=== PATIENT | female | born 1995 | race Two or more races ===

== ENCOUNTER 2020-04-12 18:36 | Observation (INO) ==
[2020-04-12] MEDS ORDERED: NS 1000 ML 1,000 ML IV ONE (19:10)
--- NOTE | 2020-04-12 19:10 | ED.ABDFE ---
HPI Time Seen Time Seen by Provider: 04/12/20 19:10 PCP Primary Care Physician: ANAT HPI Comment HPI Comment: HISTORY BELOW. Complaint Doctors Chief Complaint Comments: PATIENT IS 24YR OLD FEMALE IN ER WITH RIGHT FLANK PAIN RADIATING TO RUQ ABDOMEN TIMES 4 DAYS. PAIN ASSOCIATED WITH NAUSEA AND VOMITING. PAIN IS 10/10 IN THE RIGHT FLANK RADIATING IN BAND LIKE MANNER TO RUQ OF THE ABDOMEN. PAIN IS SHARP. DENIES DIARRHEA OR DYSURIA. SIMILAR MILD PAIN IN PAST SEVERAL MONTHS. PAST FEW DAYS, PATIENT NOT HOLDING DOWN FLUID. SHE IS SLIGHTLY WEAK. Chief Complaint:: PATIENT IN ED VIA WHEELCHAIR WITH C/O RIGHT FLANK PAIN SHARP IN NATURE X 4 DAYS AND RATED 10/10. PATIENT STATES SHE HAS BEEN NAUSEATED AND VOMITING SINCE THURSDAY AND UNABLE TO KEEP ANY FOOD DOWN Self Treatment fo Chief Complaint: TYLENOL OTC COVID-19 Coronavirus risk:travel/contact w/high risk person: No Has patient experienced Coronavirus symptoms: No Reviewed Nurses Notes Review: Yes Source History Provided: Patient Mode of arrival Mode of Arrival: Wheelchair Timing Onset of Chief Complaint: 04/08/20 Came on: Suddenly Duration Since Onset: Constant Duration: Days Location Location: RUQ (RIGHT FLANK PAIN.) Severity Severity: Severe Quality Quality: Sharp Context History of: None Modifying factors Worsening Factors: Exertion Improving Factors: Lying Still Associated signs and symptoms Associated Signs and Symptoms: Nausea and Vomiting PMH PMH Past Medical History: No Past Surgical History: No Family History History of Family Medical Conditions: No Social History Alcohol Use: None Do you use any recreational Drugs:: No Lives With: Family Lives Where: Home Travel Risk Coronavirus risk:travel/contact w/high risk person: No Has patient experienced Coronavirus symptoms: No Infectious screening In the last 2 months have you had wt loss of >10#?: NO Have you had fever, night sweats or hemotysis?: No Have you traveled outside the country in the last 6 months?: No Isolation: Standard ROS Review of Systems Constitutional: See HPI, Weakness and Fatigue; negative Fever Eyes: No Symptoms Reported and See HPI ENTM: No Symptoms Reported and See HPI; negative Ear Pain, Nose Discharge, Nose Congestion and Throat Pain Respiratoy: No Symptoms Reported and See HPI; negative Moist Cough, Short of Breath and Wheezing Cardiovascular: No Symptoms Reported and See HPI; negative Chest Pain, Edema and Palpitations Gastrointestinal/Abdominal: See HPI, Abdominal Pain, Nausea and Vomiting; negative Constipation and Diarrhea Genitourinary: No Symptoms Reported and See HPI; negative Dysuria, Frequency and Hematuria Neurological: No Symptoms Reported and See HPI; negative Headache, Weakness and Dizziness Musculoskeletal: No Symptoms Reported, See HPI and Back Pain (RIGHT FLANK PAIN.); negative Muscle Pain Integumentary: No Symptoms Reported and See HPI; negative Change in Color, Rash and Juandice Hematologic/Lymphatic: No Symptoms Reported and See HPI; negative Easy Bruising and Swollen Glands Endocrine: No Symptoms Reported and See HPI; negative Increased Thirst, Increased Urine and Decreased Appetite Psychiatric: No Symptoms Reported and See HPI All Other Systems: Reviewed and Negative PE Vital Signs Vitals: Temperature 97.4 F Pulse Rate 78 Respiratory Rate 20 Blood Pressure [Left Arm] 124/72 Blood Pressure 131/77 O2 Sat by Pulse Oximetry 99 General Limitations: No Limitations General Appearance: Alert and In No Apparent Distress Head Head Exam: Normal Inspection and Atraumatic Eyes Eye exam: Normal Appearance and PERRL; negative Scleral Icterus and Conjunctival Injection ENT ENT Exam: Normal Exam, Normal Oropharynx, Normal External Ear Exam and TM's Normal Bilaterally Neck Neck Exam: Normal Inspection and Full ROM; negative Trachea Midline and Tenderness Chest Chest Inspection: Normal Inspection and Symmetric Chest Wall Rise Respiratory Respiratory Exam: Normal Lung Sounds Bilat; negative Accessory Muscle Use, Chest Wall Tenderness and Respiratory Distress Respiratory Exam: Bilateral: Clear to Auscultation Cardiovascular Cardiovascular Exam: Regular Rate, Normal Rhythm and Normal Heart Sounds; negative Systolic Murmur and Diastolic Murmur Abdominal Exam Abdominal Exam: Normal Inspection, Normal Bowel Sounds, Soft and Tenderness Abdominal Tenderness: RUQ and Moderate Rectal Rectal Exam: Deferred Back Back Exam: Normal Inspection; negative (R) CVA Tenderness Extremeties Extremities Exam: Normal Inspection, Tenderness and Normal Capillary Refill; negative Calf Tenderness External Exam: Female: Deferred : Speculum Exam (Female): Deferred : Bimanual Exam (female): Deferred Neurologic Neurological Exam: Alert, Oriented X3 and CN II-XII Intact; negative Motor Sensory Deficit Psychiatric Psychiatric Exam: Normal Affect and Normal Mood Skin Skin Exam: Warm, Dry and Intact MDM Differential Diagnosis Differential Diagnosis- Considerations may include:: Bowel Obstruction, Cholcystitis, Cholelethiasis, Constipation, Diverticular disease, Gastritus/PUD, Inflammatory BD, Pancreatitis, Urinary tract infection and Urolithiasis COURSE Treatment Treatment: SEE ORDERS. NS 1L IV BOLUS. TORADOL 30MG IV AND ZOFRAN 4MG IV, IN ER. Reevaluation 1st: Improved (PAIN IMPROVING WITH MEDICATION.) Consultation Consultation Comments: DISCUSSED PATIENT WITH DR. BLANEKNSHIP. HE WILL ADMIT PATIENT. Education/Counseling Education/Counseling: Patient Educated On: Diagnosis ROR Labs Reviewed Laboratory Results Reviewed?: Yes Result Diagrams: 04/12/20:04/12/20 Laboratory: WBC 6.4 X10^3/uL (3.6-10.0) 04/12/20 RBC 4.86 X10^6/uL (3.5-5.4) 04/12/20 Hgb 15.3 g/dL (12.0-16.0) 04/12/20: Hct 44.8 % (36.0-47.0) 04/12/20: MCV 92.2 fL (80.0-100.0) 04/12/20: MCH 31.5 pg (27.0-34.0) 04/12/20: MCHC 34.2 g/dL (33.0-35.0) 04/12/20 RDW 12.5 % (11.6-16.5) 04/12/20: Plt Count 249 X10^3/uL (150.0-450.0) 04/12/20: MPV 8.2 fL (7.4-11.0) 04/12/20: Neut % (Auto) 62.3 % (42.0-75.0) 04/12/20: Lymph % (Auto) 28.5 % (21.0-51.0) 04/12/20: [place] % (Auto) 7.0 % (0.0-13.0) 04/12/20 Eos % (Auto) 1.5 % (0.9-2.9) 04/12/20 Baso % (Auto) 0.7 % (0.2-1.0) 04/12/20 Neut # (Auto) 4.0 x10^3/uL (2.2-4.8) 04/12/20 19:27 Lymph # (Auto) 1.8 X10^3/uL (1.3-2.9) 04/12/20 19:27 [place] # (Auto) 0.4 x10^3/uL (0.3-0.8) 04/12/20 19:27 Eos # (Auto) 0.1 x10^3/uL (0.0-0.2) 04/12/20 19:27 Baso # (Auto) 0.0 X10^3/uL (0.0-0.1) 04/12/20 19:27 Absolute Nucleated RBC 0.0 /100WBC 04/12/20 19:27 Sodium 137 mmol/L (136-145) 04/12/20 19:27 Corrected Sodium 138 mmol/L (136-145) 04/12/20 19:27 Potassium 3.6 mmol/L (3.5-5.1) 04/12/20 19:27 Chloride 101 mmol/L (98-107) 04/12/20 19:27 Carbon Dioxide 31.0 mmol/L (21-32) 04/12/20 19:27 BUN 8 mg/dL (7-18) 04/12/20 19:27 Creatinine 0.69 mg/dL (0.55-1.02) 04/12/20 19:27 Est GFR (MDRD) Af Amer > 60 (>60) 04/12/20 19:27 Est GFR (MDRD) Non-Af > 60 (>60) 04/12/20 19:27 Glucose 126 mg/dL (65-99) H 04/12/20 19:27 Calcium 9.2 mg/dL (8.5-10.1) 04/12/20 19:27 Corrected Calcium TNP 04/12/20 19:27 Total Bilirubin 3.30 mg/dL (0.2-1.0) H 04/12/20 19:27 AST 359 Units/L (15-37) H 04/12/20 19:27 ALT 764 Units/L (12-78) H 04/12/20 19:27 Alkaline Phosphatase 168 Units/L (46-116) H 04/12/20 19:27 Total Protein 7.7 g/dL (6.4-8.2) 04/12/20 19: Albumin 3.8 g/dL (3.4-5.0) 04/12/20 19: Globulin 3.9 g/dL (2.5-4.5) 04/12/20: Albumin/Globulin Ratio 1.0 Ratio (1.1-2.1) L 04/12/20 19: Amylase 73 Units/L (25-115) 04/12/20: Lipase 164 Units/L (73-393) 04/12/20 19: HCG, Qual Negative <10 mIU/mL 04/12/20 19: Specimen Type Clean catch urine 04/12/20 21: Urine Color Dark yellow (YELLOW) 04/12/20 21: Urine Appearance Hazy (CLEAR) 04/12/20 21: Urine pH 7.0 (5.0 - 8.0) 04/12/20 21:30 Ur Specific [place] 1.010 (1.000-1.030) 04/12/20 21:30 Urine Protein 1+ (NEGATIVE) 04/12/20 21:30 Urine Glucose (UA) Negative (NEGATIVE) 04/12/20 21:30 Urine Ketones Negative (NEGATIVE) 04/12/20 21:30 Urine Occult Blood 1+ (NEGATIVE) 04/12/20 21: Urine Nitrite Negative (NEGATIVE) 04/12/20 21:30 Urine Bilirubin 1+ (NEGATIVE) 04/12/20 21:30 Urine Urobilinogen 3+ (NORMAL) 04/12/20 21:30 Ur Leukocyte Esterase 3+ (NEGATIVE) 04/12/20 21:30 Urine RBC 3-5 /HPF (0-3) A 04/12/20 21:30 Urine WBC 5-10 /HPF (0-5) A 04/12/20 21:30 Ur Squamous Epith Cells Moderate /HPF (NEGATIVE) 04/12/20 21:30 Urine Bacteria Trace /HPF (NEGATIVE) 04/12/20 21:30 Ur Culture Indicated? Yes/culture set up 04/12/20 21:30 XRAY XRAY Interpreted by: Radiologist (REPORT NOTED AND DISCUSSED WITH PATIENT.) and Self (AGREE WITH REPORT.) Opioid Opioid Risk Tool Age (Hiram box if 16-45): Yes History of Preadolescent Sexual Abuse: No Total: 1 Total Score Risk Category: Low Risk Copyright: Murali HOGAN predicting aberrant behaviors Diagnosis Discharge Problem: Abnormal LFTs (liver function tests) Abdominal pain Qualifiers: Abdominal location: right upper quadrant Qualified Code(s): R10.11 - Right upper quadrant pain Cholelithiasis Qualifiers: Cholelithiasis location: gallbladder Cholecystitis presence: without cholecystitis Biliary obstruction: without biliary obstruction Qualified Code(s): K80.20 - Calculus of gallbladder without cholecystitis without obstruction UTI (urinary tract infection) Qualifiers: Urinary tract infection type: site unspecified Hematuria presence: with hematuria Qualified Code(s): N39.0 - Urinary tract infection, site not specified Instructions Forms: Precautions for COVID19 Patient Portal Social Distancing
[2020-04-12] MEDS ORDERED: TORADOL 30 MG VIAL IVP ONE (19:15)
[2020-04-12] MEDS ORDERED: ZOFRAN INJ 4 MG VIAL IVP ONE (19:15)
[2020-04-12] MEDS ORDERED: NS 1000 ML 1,000 ML ONE (19:20)
[2020-04-12] MEDS ORDERED: TORADOL 30 MG VIAL ONE (19:36)
[2020-04-12] MEDS ORDERED: ZOFRAN INJ 4 MG VIAL ONE (19:36)
[2020-04-12 19:38] LABS: BASOPHILS % (AUTO) 0.7 % (0.2-1.0); EOSINOPHILS # (AUTO) 0.1 x10^3/uL (0.0-0.2); EOSINOPHILS % (AUTO) 1.5 % (0.9-2.9); HEMATOCRIT 44.8 % (36.0-47.0); HEMOGLOBIN 15.3 g/dL (12.0-16.0); LYMPHOCYTES # (AUTO) 1.8 X10^3/uL (1.3-2.9); LYMPHOCYTES % (AUTO) 28.5 % (21.0-51.0); MEAN CORPUSCULAR HEMOGLOBIN 31.5 pg (27.0-34.0); MEAN CORPUSCULAR HGB CONC 34.2 g/dL (33.0-35.0); MEAN CORPUSCULAR VOLUME 92.2 fL (80.0-100.0); MEAN PLATELET VOLUME 8.2 fL (7.4-11.0); MONOCYTES # (AUTO) 0.4 x10^3/uL (0.3-0.8); NEUTROPHILS % (AUTO) 62.3 % (42.0-75.0); PLATELET COUNT 249 X10^3/uL (150.0-450.0); RED BLOOD COUNT 4.86 X10^6/uL (3.5-5.4); RED CELL DISTRIBUTION WIDTH 12.5 % (11.6-16.5); WHITE BLOOD COUNT 6.4 X10^3/uL (3.6-10.0)
[2020-04-12 19:49] LABS: ALANINE AMINOTRANSFERASE 764 Units/L (12-78); ALBUMIN 3.8 g/dL (3.4-5.0); ALKALINE PHOSPHATASE 168 Units/L (46-116); AMYLASE 73 Units/L (25-115); ASPARTATE AMINO TRANSFERASE 359 Units/L (15-37); BLOOD UREA NITROGEN 8 mg/dL (7-18); CALCIUM 9.2 mg/dL (8.5-10.1); CHLORIDE 101 mmol/L (98-107); COR NA(FOR HYPERGLY) 138 mmol/L (136-145); CREATININE 0.69 mg/dL (0.55-1.02); LIPASE 164 Units/L (73-393); SODIUM 137 mmol/L (136-145); TOTAL PROTEIN 7.7 g/dL (6.4-8.2); eGFR NON BLACK RACES > 60 (>60)
[2020-04-12 20:05] LABS: SERUM PREGNANCY TEST, QUAL NEGATIVE <10 mIU/mL
[2020-04-12 20:22] LABS: GLUCOSE, URINE NEGATIVE (NEGATIVE); LEUKOCYTE ESTERASE ,URINE 3+ (NEGATIVE)
--- NOTE | 2020-04-12 20:51 | CT ---
HISTORYC/O RIGHT FLANK PAIN SHARP IN NATURE X 4 DAYS AND RATED 10/10. PATIENT STATES SHE HAS BEEN NAUSEATED AND VOMITING SINCE THURSDAY AND UNABLE TO KEEP ANY FOOD DOWN.br EndSTUDYABDOMEN/PELVIS W/O CONCOMPARISONNoneTECHNIQUEMultiple axial images of the abdomen and pelvis were obtained from the lung bases to the pubic symphysis without the administration of IV contrast. Dose reduction techniques including Automated Exposure Control (AEC) and adjustment of mA and kV were utilized.FINDINGSGranulomatous changes are seen within the visualized left lung. The liver is enlarged. Diffuse decreased attenuation throughout the liver suggests fatty infiltration. Correlate clinically as other causes of hepatic disease may produce a similar appearance. The spleen, pancreas, adrenals, and kidneys are grossly unremarkable in appearance given the limitations of this noncontrast exam. No CT evidence of hydronephrosis is identified. The gallbladder is somewhat distended and may be further evaluated with ultrasound as clinically indicated. A small umbilical hernia containing fat is noted. The appendix is partially air-filled and otherwise grossly unremarkable.IMPRESSIONNo CT evidence of obstructive uropathy is appreciated.Hepatomegaly.Hepatic steatosis.Other findings as noted above.Electronically signed by: JAELYN MALDONADO (Apr 12, 2020 20:50:40)
[2020-04-12 21:49] LABS: BILIRUBIN,URINE 1+ (NEGATIVE); BLOOD/HEMOGLOBIN,URINE 1+ (NEGATIVE); KETONES,URINE NEGATIVE (NEGATIVE); NITRITES,URINE NEGATIVE (NEGATIVE); PROTEIN,URINE 1+ (NEGATIVE); UROBILINOGEN,URINE 3+ (NORMAL)
[2020-04-12 21:56] LABS: APPEARANCE,URINE HAZY (CLEAR); COLOR,URINE DARK YELLOW (YELLOW)
[2020-04-12 21:57] LABS: BACTERIA,URINE TRACE /HPF (NEGATIVE); SQUAMOUS EPITHELIAL CELL,UR MODERATE /HPF (NEGATIVE)
--- NOTE | 2020-04-12 23:06 | US ---
HISTORYABNORMAL CT, PAIN SHARP IN NATURE X 4 DAYS AND RATED 10/10. PATIENT STATES SHE HAS BEEN NAUSEATED AND VOMITING SINCE THURSDAY AND UNABLE TO KEEP ANY FOOD DOWNSTUDYGALL BLADDERCOMPARISONNoneTECHNIQUEMultiple images of the right upper quadrant were obtained.FINDINGSThe liver is incompletely visualized but appears enlarged. Diffuse increased echogenicity throughout the liver suggests fatty infiltration. Correlate clinically as other causes of hepatic disease may produce a similar appearance. Multiple stones are noted within the gallbladder. Gallbladder wall thickness is within normal limits measuring 1.9 mm. The common bile duct is within normal limits in caliber measuring 6.4 mm. The right kidney measures 10.0 x 4.7 x 7.0 cm. The right renal cortical thickness measures 1.9 cm. The IVC and pancreas were not visualized.Impression:Hepatomegaly.Sonographic findings of hepatic steatosis.Cholelithiasis.Electronically signed by: JAELYN MALDONADO (Apr 12, 2020 23:05:38)
[2020-04-13] MEDS ORDERED: DEMEROL PO PRN (00:57)
[2020-04-13] MEDS ORDERED: DEMEROL INJ IVP PRN (01:03)
[2020-04-13] MEDS ORDERED: NS 100 ML IV + SPIKE MINIBAG* 100 ML IV ONE (01:03)
[2020-04-13] MEDS ORDERED: ZOSYN VIAL 3.375 GRAMS IV ONE (01:03)
[2020-04-13] MEDS ORDERED: NS 1000 ML 1,000 ML ONE ×2 (01:03→13:16)
[2020-04-13 01:16] VITALS: BMI 33.3
[2020-04-13] MEDS: ZOSYN VIAL 3.375 GRAMS 3.375 G in NS 100 ML IV + SPIKE MINIBAG* 100 ML IV SCH ×5 (01:30→21:16)
[2020-04-13] MEDS: NS 1000 ML 1,000 ML IV SCH ×2 (01:46→16:28)
[2020-04-13 05:56] LABS: BASOPHILS % (AUTO) 0.4 % (0.2-1.0); EOSINOPHILS # (AUTO) 0.1 x10^3/uL (0.0-0.2); EOSINOPHILS % (AUTO) 2.6 % (0.9-2.9); HEMATOCRIT 40.4 % (36.0-47.0); HEMOGLOBIN 13.9 g/dL (12.0-16.0); MEAN CORPUSCULAR HEMOGLOBIN 31.7 pg (27.0-34.0); MEAN CORPUSCULAR HGB CONC 34.5 g/dL (33.0-35.0); MEAN CORPUSCULAR VOLUME 91.8 fL (80.0-100.0); MEAN PLATELET VOLUME 8.1 fL (7.4-11.0); MONOCYTES # (AUTO) 0.3 x10^3/uL (0.3-0.8); MONOCYTES % (AUTO) 6.1 % (0.0-13.0); NEUTROPHILS # (AUTO) 2.6 x10^3/uL (2.2-4.8); NEUTROPHILS % (AUTO) 51.9 % (42.0-75.0); PLATELET COUNT 215 X10^3/uL (150.0-450.0); RED CELL DISTRIBUTION WIDTH 12.4 % (11.6-16.5)
[2020-04-13 06:07] LABS: ALANINE AMINOTRANSFERASE 659 Units/L (12-78); ALKALINE PHOSPHATASE 143 Units/L (46-116); ASPARTATE AMINO TRANSFERASE 311 Units/L (15-37); BLOOD UREA NITROGEN 6 mg/dL (7-18); CALCIUM 8.7 mg/dL (8.5-10.1); CARBON DIOXIDE 22.9 mmol/L (21-32); CHLORIDE 106 mmol/L (98-107); COR CA(FOR HYPOALB) 9.5 mg/dL (8.5-10.1); CREATININE 0.58 mg/dL (0.55-1.02); SODIUM 137 mmol/L (136-145); TOTAL PROTEIN 6.4 g/dL (6.4-8.2); eGFR NON BLACK RACES > 60 (>60)
[2020-04-13] MEDS ORDERED: LR 1000 ML IV 1,000 ML IV ONE ×2 (11:05→13:16)
[2020-04-13] MEDS ORDERED: FENTANYL INJ 250 mcg ONE (11:31)
[2020-04-13] MEDS ORDERED: ANCEF 1 GRAM IV PREMIX* 2 G/100 ML BAG IV ONE (11:35)
[2020-04-13] MEDS ORDERED: VERSED ONE (11:36)
[2020-04-13] MEDS ORDERED: XYLOCAINE 2 % (PLAIN) ONE (11:36)
[2020-04-13] MEDS ORDERED: DIPRIVAN VIAL ONE (11:36)
[2020-04-13] MEDS ORDERED: LTA KIT LIDOCAINE 4% ONE (11:36)
[2020-04-13] MEDS ORDERED: NORCURON INJ 10 MG VIAL ONE (11:36)
[2020-04-13] MEDS ORDERED: TORADOL 30 MG VIAL ONE (11:36)
[2020-04-13] MEDS ORDERED: SUPRANE ONE (11:36)
[2020-04-13] MEDS ORDERED: ZOFRAN INJ 4 MG VIAL ONE (11:36)
[2020-04-13] MEDS ORDERED: QUELICIN (OR ANECTINE) ONE (11:36)
[2020-04-13] MEDS ORDERED: ROBINUL ONE (11:36)
[2020-04-13] MEDS ORDERED: NEOSTIGMINE INJ ONE (11:36)
[2020-04-13] MEDS ORDERED: DECADRON INJ ONE (11:36)
[2020-04-13] MEDS ORDERED: BACTROBAN TOPICAL OINT ONE (12:04)
[2020-04-13] MEDS ORDERED: DILAUDID INJ ONE (12:49)
[2020-04-13] MEDS ORDERED: FENTANYL INJ 100 mcg ONE (13:56)
[2020-04-13] MEDS ORDERED: REGLAN INJ 10 MG VIAL IVP PRN (15:05)
[2020-04-13] MEDS ORDERED: BENADRYL INJ 50 MG VIAL IVP PRN (15:05)
[2020-04-13] MEDS ORDERED: DILAUDID INJ IVP PRN (15:05)
[2020-04-13] MEDS ORDERED: PHENERGAN INJ 25 MG IM PRN (15:05)
[2020-04-13] MEDS ORDERED: ZOFRAN INJ 4 MG VIAL IVP PRN ×2 (15:05→23:15)
[2020-04-13] MEDS: ZOFRAN INJ 4 MG VIAL IVP PRN ×2 (16:20→22:00)
[2020-04-13] MEDS: D5 1/2 NS 1000 ML 1,000 ML IV SCH (17:00)
[2020-04-13] MEDS: DILAUDID INJ IVP PRN ×2 (18:15→22:50)
[2020-04-13] MEDS ORDERED: PHENERGAN INJ 25 MG IM ONE ×2 (23:05→23:10)
[2020-04-14] MEDS: D5 1/2 NS 1000 ML 1,000 ML IV SCH ×3 (02:15→08:18)
[2020-04-14] MEDS: PROTONIX INJ 40 MG VIAL IVP SCH ×2 (02:15→08:11)
[2020-04-14] MEDS: ZOSYN VIAL 3.375 GRAMS 3.375 G in NS 100 ML IV + SPIKE MINIBAG* 100 ML IV SCH (06:10)
[2020-04-14 06:13] LABS: BASOPHILS % (AUTO) 0.3 % (0.2-1.0); EOSINOPHILS % (AUTO) 0.8 % (0.9-2.9); HEMATOCRIT 37.7 % (36.0-47.0); HEMOGLOBIN 12.7 g/dL (12.0-16.0); LYMPHOCYTES # (AUTO) 1.7 X10^3/uL (1.3-2.9); LYMPHOCYTES % (AUTO) 28.5 % (21.0-51.0); MEAN CORPUSCULAR HEMOGLOBIN 31.4 pg (27.0-34.0); MEAN CORPUSCULAR HGB CONC 33.6 g/dL (33.0-35.0); MEAN CORPUSCULAR VOLUME 93.4 fL (80.0-100.0); MEAN PLATELET VOLUME 8.2 fL (7.4-11.0); MONOCYTES # (AUTO) 0.4 x10^3/uL (0.3-0.8); MONOCYTES % (AUTO) 6.9 % (0.0-13.0); NEUTROPHILS # (AUTO) 3.8 x10^3/uL (2.2-4.8); NEUTROPHILS % (AUTO) 63.5 % (42.0-75.0); PLATELET COUNT 204 X10^3/uL (150.0-450.0); RED BLOOD COUNT 4.03 X10^6/uL (3.5-5.4); RED CELL DISTRIBUTION WIDTH 12.7 % (11.6-16.5)
[2020-04-14 06:18] LABS: BLOOD UREA NITROGEN 6 mg/dL (7-18); CALCIUM 8.3 mg/dL (8.5-10.1); CARBON DIOXIDE 24.3 mmol/L (21-32); CHLORIDE 104 mmol/L (98-107); COR NA(FOR HYPERGLY) 138 mmol/L (136-145); CREATININE 0.63 mg/dL (0.55-1.02); SODIUM 137 mmol/L (136-145); eGFR NON BLACK RACES > 60 (>60)
[2020-04-14] MEDS ORDERED: POTASSIUM CHL 40 MEQ/NS 0.45% 500 ML IV PRN (07:33)
[2020-04-14] MEDS ORDERED: POTASSIUM CHL 60 MEQ/NS 0.45% 500 ML IV PRN (07:33)
[2020-04-14] MEDS ORDERED: K-RIDER 10 MEQ/NS 100 ML 10 MEQ/100 ML BAG IV PRN (07:33)
[2020-04-14] MEDS ORDERED: KLOR-CON PO PRN (07:33)
[2020-04-14] MEDS ORDERED: MICRO K EXTEN CAP 10 MEQ PO PRN (07:33)
[2020-04-14] MEDS ORDERED: POTASSIUM CHLORIDE LIQ 20 MEQ UDC PO PRN (07:33)
[2020-04-14] MEDS ORDERED: K-DUR TAB 20 MEQ PO PRN (07:33)
[2020-04-14 07:42] LABS: ALBUMIN 2.8 g/dL (3.4-5.0); BILIRUBIN,DIRECT 0.5 mg/dL (0-0.2); TOTAL PROTEIN 6.2 g/dL (6.4-8.2)
[2020-04-14 08:29] VITALS: BP 117/66
[2020-04-14] MEDS ORDERED: DILAUDID INJ IVP PRN (10:00)
== END 2020-04-14 11:00 | disposition home or self-care (01) ==
LOC: ER 18:45 → MED/SURG 18:45
PROVIDERS: ADMIT Surgery; ATTEND Surgery
DX: K76.89 Other specified diseases of liver; R10.84 Generalized abdominal pain; R10.11 Right upper quadrant pain; K80.01 Calculus of gallbladder with acute cholecystitis with obstruction; R11.2 Nausea with vomiting, unspecified; R16.0 Hepatomegaly, not elsewhere classified; R74.8 Abnormal levels of other serum enzymes; N39.0 Urinary tract infection, site not specified